=== PATIENT | female | born 1995 | race Caucasian/White ===

== ENCOUNTER 2017-08-18 13:07 | Emergency (ER) | payer BC ==
[2017-08-18 13:50] LABS: #Basophils 0.1 thou/uL (0.0-0.2); #Eosinphils 0.9 thou/uL (0.0-0.7); #Lymphocytes 2.2 thou/uL (1.20-3.40); #Monocytes 0.9 thou/uL (0.11-0.59); #Neutrophils 5.8 thou/uL (1.40-6.50); %Lymphocytes 22.6 % (21.0-51.0); %Monocytes 9.2 % (0.0-10.0); Mean Platelet Volume 7.8 fL (7.4-10.4); White Blood Cell (WBC) Count 9.9 thou/uL (4.8-10.8)
--- NOTE | 2017-08-18 14:00 | RAD ---
PORTABLE CHEST: History: Dizziness, heart palpitations. Pain was given as reason for exam. FINDINGS: Lungs are clear. Heart and mediastinum unremarkable. IMPRESSION: Unremarkable chest. POS: [facility]
[2017-08-18 14:14] LABS: ALT (SGPT) 9 U/L (8-55); AST (SGOT) 12 U/L (5-34); Alkaline Phosphatase 50 U/L (40-150); Anion Gap 14 mmol/L (10-20); BUN (Urea Nitrogen) 13 mg/dL (7.0-18.7); Bilirubin, Total 0.4 mg/dL (0.2-1.2); CK (CPK) 29 U/L (29-168); Calc. Creatinine Clearance 0 mL/min (70-130); Calcium 9.1 mg/dL (7.8-10.44); Carbon Dioxide 21 mmol/L (22-29); Chloride 108 mmol/L (98-107); Estimated GFR-MDRD Greater than 90; Globulin 2.8 g/dL (2.4-3.5); Lipase 10 U/L (8-78); Magnesium 2.3 mg/dL (1.6-2.6)
[2017-08-18 14:16] LABS: Bilirubin Negative (Negative); Blood, Urine Moderate (Negative); Glucose, Urine (Dipstick) Negative (Negative); Ketone, Urine Negative (Negative); Nitrite Negative (Negative); Protein, Urine (Dipstick) Negative (Neg-Trace)
[2017-08-18 14:18] LABS: Troponin I Less than 0.010 ng/mL (< 0.028)
[2017-08-18 14:18] LABS: Bacteria/HPF 1+ HPF (None Seen); Hyaline Casts/LPF 0-3 HYALINE CAST LPF (0-3 Hyaline); RBC/HPF 0-3 HPF (0-3); Squamous Epithelial 0-3 HPF (0-3); WBC/HPF 0-3 HPF (0-3)
[2017-08-18 14:31] LABS: Free T3 2.09 pg/mL (1.71-3.71)
[2017-08-18] MEDS ORDERED: Ketorolac Tromethamine 30 MG/ML VIAL ONE (14:33)
--- NOTE | 2017-08-28 12:54 | EKG ---
Test Reason : Blood Pressure : / mmHG Vent. Rate : 063 BPM Atrial Rate : 063 BPM P-R Int : 142 ms QRS Dur : 090 ms QT Int : 420 ms P-R-T Axes : 062 055 056 degrees QTc Int : 429 ms Normal sinus rhythm Normal ECG Confirmed by JESUS KEYS MD ([id number]), digital editor JOAQUINA JAMES ([id number]) on 08/28/2017 12:54:17 PM Referred By: Confirmed By:JESUS KEYS MD
== END 2017-08-18 15:25 | disposition home or self-care (01) ==
LOC: ERS 13:07
DX: M79.1 Myalgia (principal); R53.1 Weakness
CPT/HCPCS: 71010; 80053; 81003; 81015; 82550; 82553; 83690; 83735; 84439; 84443; 84481; 84484; 84703; 85025; 86308; 87077; 87086; 87186; 93005; 96361; 96374; J1885

== ENCOUNTER 2017-10-30 14:24 | Emergency (ER) | payer BC, SELFPAY ==
[2017-10-30 15:01] LABS: #Basophils 0.1 thou/uL (0.0-0.2); #Eosinphils 0.9 thou/uL (0.0-0.7); #Lymphocytes 2.3 thou/uL (1.20-3.40); #Monocytes 0.7 thou/uL (0.11-0.59); #Neutrophils 6.7 thou/uL (1.40-6.50); %Eosinophils 8.3 % (0.0-10.0); %Lymphocytes 21.3 % (21.0-51.0); %Monocytes 6.6 % (0.0-10.0); %Neutrophils 62.7 % (42.0-75.0); Hemoglobin 12.6 g/dL (12.0-16.0); Mean Corpuscular HGB CONC 33.4 g/dL (32.0-36.0); Mean Corpuscular Hemoglobin 30.2 pg (27.0-31.0); Mean Corpuscular Volume 90.3 fl (81.0-99.0); Platelet Count 315 thou/uL (130-400); RBC Distribution Width 13.4 % (11.5-14.5); Red Blood Cell (RBC) Count 4.17 mill/uL (4.20-5.40); White Blood Cell (WBC) Count 10.7 thou/uL (4.8-10.8)
[2017-10-30 15:13] LABS: Bilirubin Negative (Negative); Blood, Urine Negative (Negative); Clarity CLEAR (Clear); Glucose, Urine (Dipstick) Negative (Negative); Leukocyte Negative (Negative); Nitrite Negative (Negative); Protein, Urine (Dipstick) Negative (Neg-Trace); Specific Gravity, Urine 1.021 (1.002-1.036)
[2017-10-30 15:14] LABS: Pregnancy Test - Urine (BHCG) Negative (Negative); Pregu Control Background? CLEAR/WHITE (CLR/WHITE); Pregu Control Bar Appear? YES (CONTROL BAR); Specific Gravity 1.021 (1.002-1.036)
[2017-10-30 15:23] LABS: ALT (SGPT) 9 U/L (8-55); AST (SGOT) 11 U/L (5-34); Albumin 4.4 g/dL (3.5-5.0); Alkaline Phosphatase 45 U/L (40-150); Anion Gap 12 mmol/L (10-20); BUN (Urea Nitrogen) 9 mg/dL (7.0-18.7); Bilirubin, Total 0.5 mg/dL (0.2-1.2); Calc. Creatinine Clearance 0 mL/min (70-130); Calcium 9.4 mg/dL (7.8-10.44); Carbon Dioxide 22 mmol/L (22-29); Chloride 106 mmol/L (98-107); Estimated GFR-MDRD Greater than 90; Globulin 2.8 g/dL (2.4-3.5); Glucose 104 mg/dL (70-105); Potassium 3.8 mmol/L (3.5-5.1); Protein, Total 7.2 g/dL (6.0-8.3); Sodium 136 mmol/L (136-145)
[2017-10-30] MEDS ORDERED: Ibuprofen 200 MG TAB ONE (17:23)
--- NOTE | 2017-10-30 17:38 | ULT ---
ULTRASOUND BILATERAL RENAL STANDARD 10/30/17 HISTORY: Obstruction. Renal stones. COMPARISON: None FINDINGS: Right kidney measures 11.1 x 6.2 x 5.1 cm. Left kidney measures 11.2 x 5.0 x 4.9 cm. There are multip le punctate grouped calculi interpolar right kidney. No mass or hydronephrosis. IMPRESSION: 1. No evidence of obstructive uropathy. 2. There is a cluster of calcifications interpolar right kidney. POS: [facility]
== END 2017-10-30 19:50 | disposition home or self-care (01) ==
LOC: ERS 14:24
DX: G89.29 Other chronic pain (principal); M54.9 Dorsalgia, unspecified
CPT/HCPCS: 36415; 76770; 80053; 81003; 81025; 85025